=== PATIENT | male | born 1960 | race African-American/Black ===

== ENCOUNTER 2016-12-14 11:27 | Emergency (ER) | payer MEDICARE, OTHER ==
[2016-12-14] MEDS: ASPIRIN 81 MG CHEW TAB PO ONE (11:45)
--- NOTE | 2016-12-14 11:46 | ED Physician Documentation ---
Chest Pain - HISTORIAN Historian: patient, spouse - HPI Chief Complaint: Chest Pain Additional Information: chest pain lt lower parasternal sens only to touch or pressure or cough or deep breath Onset: days ago (2-3) Timing: gradual onset, still present, worse Last known Well Date: 12/09/16 Last Known Well Time: 22:00 Severity: moderate Quality: pressure, sharp. denies: like prior LA Chest Pain Radiation: no radiation Chest Pain Signs/Symptoms: denies: nausea, vomiting, diaphoresis, cool extremities, dizziness, dyspnea Worsened By: change in position Relieved By: rest - ROS CONST: no problems MS/LYMPH: none GI/: other (occ gerd - gas) EYES/ENT: denies: problems with vision SKIN/ENDO: none NEURO/PSYCH: none - PAST HX LA risk factors: other (multiple myeloma under remision s/p chemo tx) DVT/PE Risk Factors: cancer (multiple myeloma s/p chemo in remission) Neuro deficit: none GI disease: GERD Surgeries/Procedures: other (bone marrow transplant) Allergies/Adverse Reactions: Allergies Allergy/AdvReac Type Severity Reaction Status Date / Time No Known Drug Allergies Allergy Verified 12/14/16 11:55 Home Medications: Ambulatory Orders Medication Instructions Recorded Aspirin [Charito] 81 mg PO DAILY 12/14/16 Citalopram Hydrobromide [Celexa] 20 mg PO QD 12/14/16 Lenalidomide [Revlimid] 12/14/16 - SOCIAL HX Smoking History: greater than 1 pack/day Alcohol Use: heavy Drug Use: marijuana - FAMILY HX Family HX: none - VITAL SIGNS Vital Signs: Vital Signs Temp Pulse Resp BP Pulse Ox 99/62 11/25/15 13:18 - REVIEWED ASSESSMENTS Nursing Assessment Reviewed: Yes Vitals Reviewed: Yes ED Results Lab/Radiology - Radiology Radiology Impressions: cxr scaring vs atelectasis rt lung - Orders Orders: ED Orders Category Date Time Status Continuous EKG monitoring Q30M Care 12/14/16 11:43 Ordered Continuous Pulse Oximetry Q30M Care 12/14/16 11:[address] Saline Lock/IV NOW Care 12/14/16 11:43 Ordered CHEST 1 VIEW [RAD] Stat Exams 12/14/16 11:43 Ordered CBC/PLATELET/DIFF Routine Lab 12/14/16 11:43 Ordered CMP Routine Lab 12/14/16 11:43 Ordered CREATINE KINASE Routine Lab 12/14/16 11:43 Ordered TROPONIN I (cTnI) Stat Lab 12/14/16 11:43 Ordered Aspirin Med 12/14/16 11:43 Once 324 mg PO NOW ONE EKG WITH COMPARISON Stat Ther 12/14/16 11:43 Ordered Chest Pain Physical Exam - EXAM General Appearance: mild distress EENT: eye inspection normal Neck: nml inspection, no carotid bruit Respiratory: no resp. distress, nml breath sounds, manifests distinct pain on movement. No: chest non-tender, resp.distress CVS: reg. rate & rhythm, no murmur Abdomen: soft, non-tender Skin: warm/dry, normal color. No: cyanosis, diaphoresis, jaundice Extremities: non-tender, normal range of motion, no evidence of injury Neuro: oriented X3, motor nml, sensation nml, mood/affect nml Discharge Clincal Impression: Atypical chest pain, Substance abuse Home Medications: Ambulatory Orders Aspirin [Charito] 81 mg PO DAILY 12/14/16 Citalopram Hydrobromide [Celexa] 20 mg PO QD 12/14/16 Lenalidomide [Revlimid] 12/14/16 Comments: ab ecg = ok. disc life style modification and ibu 600 tid plus hot pad to chest. taper dose as gets better Condition: Good Disposition: 01 HOME, SELF-CARE Decision to Admit: NO Decision Time: 13:22
[2016-12-14 12:06] LABS: BASOPHILS % 1.1 (0.0-1.5); EOSINOPHILS % 5.8 % (0.0-6.8); MEAN CORPUSCULAR HEMOGLOBIN 36.4 pg (28.0-34.0); MONOCYTES # 0.6 # k/uL (0.0-0.9); MONOCYTES % 8.3 % (0.0-11.0); NEUTROPHILS # 3.6 # k/uL (1.4-7.7)
[2016-12-14 12:25] LABS: eGFR (African) > 60; eGFR (Non-African) > 60
[2016-12-14 13:39] VITALS: BP 108/74
--- NOTE | 2016-12-14 13:55 | Diagnostic Imaging Report ---
[facility] [address] [facility].[address] [address] Report Submission Date: Dec 14, 2016 1:02:40 PM ENVIRONMENTAL OFFICER Patient Study Name: FAISAL RÍOS Date: Dec 14, 2016 12:24:37 PM ENVIRONMENTAL OFFICER Modality Type: CR Gender: M Description: CHEST : 58 Institution: [facility] Physician: DEMARIO Beaver DO Portable chest HISTORY: 4 days of chest pain FINDINGS: Minimal right upper lobe atelectasis or scar and mild hyperinflation are observed. There is no confluent infiltrate, pleural effusion, or pneumothorax. Heart size and pulmonary vascularity are normal. IMPRESSION: Minimal right upper lobe atelectasis or scar and mild hyperinflation. Electronically signed on Dec 14, 2016 1:02:40 PM ENVIRONMENTAL OFFICER by: Toby BRYAN
== END 2016-12-14 13:36 | disposition home or self-care (01) ==
LOC: ED 11:27
DX: R07.89 Other chest pain (principal); F19.10 Other psychoactive substance abuse, uncomplicated
CPT/HCPCS: 71010; 80053; 82550; 84484; 85025; 99282; 99283; S1016

== ENCOUNTER 2017-09-10 00:25 | Emergency (ER) | payer MEDICARE, OTHER ==
[2017-09-10] MEDS: 0.9 % SODIUM CHLORIDE 1,000 ML IV ONE ×3 (00:37→02:04)
[2017-09-10] MEDS ORDERED: 0.9 % SODIUM CHLORIDE 1,000 ML IV ONE (00:39)
[2017-09-10 01:22] LABS: MEAN CORPUSCULAR HEMOGLOBIN 36.4 pg (28.0-34.0); MEAN CORPUSCULAR VOLUME 104.7 fl (80.0-100.0)
--- NOTE | 2017-09-10 01:38 | ED Physician Documentation ---
General Adult - HISTORIAN Historian: patient - HPI Stated Complaint: Left Rib Pain/Back Pain Chief Complaint: General Adult Onset: days ago Timing: worse Further Comments: yes (57 year old male patient brought in by family with complaints of severe weakness, nausea. Last chemo was Wednesday at [place]. History of multiple myeloma. C/O dyspnea with exerction, denies fever.) - ROS CONST: recent illness, weakness, weight loss, chills. denies: fever EYES/ENT: none CVS/RESP: shortness of breath. denies: chest pain, cough GI/: nausea. denies: abdominal pain, problems urinating, vomiting, diarrhea MS/SKIN/LYMPH: none NEURO/PSYCH: denies: headache, difficulty walking, difficulty with speech, anxiety, depression - PAST HX Past History: other (GERD, multiple myeloma) Allergies/Adverse Reactions: Allergies Allergy/AdvReac Type Severity Reaction Status Date / Time No Known Drug Allergies Allergy Verified 12/14/16 11:55 Home Medications: Ambulatory Orders Medication Instructions Recorded Aspirin [Charito] 81 mg PO DAILY 12/14/16 Acyclovir [Zovirax] 400 mg PO Q8H 09/10/17 Dexamethasone [Decadron] 20 mg PO DAILY 09/10/17 LORazepam [Ativan] 0.5 mg PO Q4H PRN 09/10/17 Lenalidomide [Revlimid] 10 mg PO DAILY 09/10/17 Prochlorperazine Maleate 10 mg PO Q4-6 PRN 09/10/17 [Compazine] - SOCIAL HX Smoking History: cigarettes Alcohol Use: occasionally - FAMILY HX Family History: No - VITAL SIGNS Vital Signs: Vital Signs Temp Pulse Resp BP Pulse Ox 97.6 F 104 H 24 82/57 92 09/10/17 00:25 09/10/17 01:30 09/10/17 00:25 09/10/17 00:25 09/10/17 01:30 - REVIEWED ASSESSMENTS Nursing Assessment Reviewed: Yes Vitals Reviewed: Yes Progress - Progress Progress: 013 Call to Beard, case reviewed, SBP 75-80 0140 patient awake and alert with hypotension. Port accessed, 2nd blood culture obtained and 2nd liter of fluid started. 0150 BP improved 85/56, MAP 67 - will continue to hydrated and try to avoid vasopressor. 0205 BP 75/50, MAP 50 - Will start dopamine at 5mcg/kg/min to stabilize for transfer. Continue with hydration. Chirag updated. Beard request levophed drip. BP improved at discharge, patient remains awake and alert. - EKG/XRAY/CT EKG: rhythm (ST, no acute changes) ED Results Lab/Radiology - Lab Results Lab Results: Lab Results 09/10/17 09/10/17 09/10/17 00:48 00:46 00:46 WBC RBC Hgb Hct MCV MCH MCHC RDW Plt Count Neut % (Auto) Lymph % (Auto) Fallon % (Auto) Eos % (Auto) Baso % (Auto) Neut # (Auto) Lymph # (Auto) Fallon # (Auto) Eos # (Auto) Baso # (Auto) Reactive Lymphs % Reactive Lymphs # Sodium 128 mmol/L L mmol/L (137-145) Potassium 4.2 mmol/L mmol/L (3.5-5.1) Chloride 92 mmol/L L mmol/L (98-107) Carbon Dioxide 24 mmol/L mmol/L (22-30) BUN 59 mg/dL H mg/dL (9-20) Creatinine 2.00 mg/dL H mg/dL (0.66-1.25) Estimated Creat Clear 36 Est GFR ( Amer) 44 L (60 - ) Est GFR (Non-Af Amer) 37 L (60 - ) Glucose 104 mg/dL mg/dL (74-106) Lactate 3.3 U/L H U/L (0.7-2.1) Calcium 8.8 mg/dL mg/dL (8.4-10.2) Total Bilirubin 1.0 mg/dL mg/dL (0.2-1.3) AST 16 U/L U/L (15-46) ALT 21 U/L U/L (13-69) Alkaline Phosphatase 38 U/L U/L (38-126) Creatine Kinase 20 U/L L U/L (55-170) Troponin I 0.04 ng/mL ng/mL (0.03-0.06) Total Protein 7.9 g/dL g/dL (6.3-8.2) Albumin 3.5 g/dL g/dL (3.5-5.0) 09/10/17 00:46 WBC 0.50 K/ul L* K/ul (4.00-12.00) RBC 2.39 M/ul L M/ul (3.90-5.20) Hgb 8.7 g/dL L g/dL (12.0-18.0) Hct 25.0 % L % (37.0-53.0) MCV 104.7 fl H fl (80.0-100.0) MCH 36.4 pg H pg (28.0-34.0) MCHC 34.8 g/dL g/dL (30.0-36.0) RDW 15.7 % H % (11.3-14.3) Plt Count 45 K/mm3 L K/mm3 (130-400) Neut % (Auto) 33.4 % L % (39.0-79.0) Lymph % (Auto) 54.9 % H % (16.0-50.0) Fallon % (Auto) 3.1 % % (0.0-11.0) Eos % (Auto) 0.2 % % (0.0-6.8) Baso % (Auto) 1.6 H (0.0-1.5) Neut # (Auto) 0.2 # k/uL L # k/uL (1.4-7.7) Lymph # (Auto) 0.3 # k/uL L # k/uL (0.6-4.0) Fallon # (Auto) 0.0 # k/uL # k/uL (0.0-0.9) Eos # (Auto) 0.0 # k/uL # k/uL (0.0-0.6) Baso # (Auto) 0.0 # k/uL # k/uL (0.0-0.5) Reactive Lymphs % Pending Reactive Lymphs # Pending Sodium Potassium Chloride Carbon Dioxide BUN Creatinine Estimated Creat Clear Est GFR ( Amer) Est GFR (Non-Af Amer) Glucose Lactate Calcium Total Bilirubin AST ALT Alkaline Phosphatase Creatine Kinase Troponin I Total Protein Albumin - Radiology Radiology Impressions: Findings: The lungs are mildly hyperinflated. There is diffuse infiltrate present within the right middle lobe and lingular segment of the left upper lobe. There is no large pleural effusion or pneumothorax identified. A port is present in the right chest wall with catheter tip terminating in the distal superior vena cava. Impression: Impression: 1. Diffuse right middle lobe and left upper lobe lingular segment infiltrate present. - Orders Orders: ED Orders Category Date Time Status Continuous EKG monitoring Q30M Care 09/10/17 00:37 Active Continuous Pulse Oximetry Q30M Care 09/10/17 00:37 Active CHEST P.A.&LAT 2 VIEWS [RAD] Stat Exams 09/10/17 00:37 Ordered BLOOD CULTURE Stat Lab 09/10/17 00:53 Ordered CBC/PLATELET/DIFF Routine Lab 09/10/17 00:46 Results CMP Routine Lab 09/10/17 00:46 Completed CREATINE KINASE Routine Lab 09/10/17 00:46 Completed LACTATE Stat Lab 09/10/17 00:48 Completed TROPONIN I (cTnI) Stat Lab 09/10/17 00:46 Completed 0.9 % Sodium Chloride [Normal Saline] 1,000 ml Med 09/10/17 00:39 Discontinued IV .STK-MED 0.9 % Sodium Chloride [Normal Saline] 1,000 ml Med 09/10/17 01:36 Ordered IV NOW 0.9 % Sodium Chloride [Normal Saline] 1,000 ml Med 09/10/17 00:37 Active IV Q1H Oxygen Daily Oxygen 09/10/17 00:45 Ordered EKG WITH COMPARISON Stat Ther 09/10/17 00:37 Ordered General Adult Physical Exam - PHYSICAL EXAM GENERAL APPEARANCE: moderate distress EENT: eye inspection normal, pharynx normal, AARON, dry mucous membranes RESPIRATORY: no resp distress, chest non-tender, other (deminished in bases) CVS: heart sounds normal, equal pulses, no murmur, no gallop, PMI nml, no JVD, no friction rub, tachycardia (sinus ) ABDOMEN: soft, no organomegaly, normal bowel sounds, no abdominal bruit, no distension BACK: normal inspection, no CVA tenderness SKIN: warm/dry, normal color EXTREMITIES: non-tender, normal range of motion, no evidence of injury, no edema NEURO: oriented X3, CN's nml as tested, motor nml, sensation nml, mood/affect nml, other (severe generalized edema) Discharge Clincal Impression: Dehydration, Pancytopenia, Hyponatremia Multiple myeloma Qualifiers: Multiple myeloma remission status: not in remission Qualified Code(s): C90.00 - Multiple myeloma not having achieved remission Hypotension Qualifiers: Hypotension type: other hypotension type Qualified Code(s): I95.89 - Other hypotension Referrals: Luis Merrill MD [Primary Care Provider] - 2 Days Condition: Fair Disposition: 02 XFER SHT-TRM HOSP Decision to Admit: NO Decision Time: 01:45
[2017-09-10] MEDS ORDERED: DOPAMINE HCL/D5W 400 MG/250 ML BAG IV ONE (02:04)
[2017-09-10] MEDS: DOPAMINE HCL/D5W 400 MG/250 ML BAG IV ONE (02:05)
[2017-09-10] MEDS ORDERED: NOREPINEPHRINE BITARTRATE 1 MG/ML 4ML IV ONE (02:12)
[2017-09-10] MEDS ORDERED: 0.9 % SODIUM CHLORIDE 250 ML IV ONE (02:19)
[2017-09-10 03:01] VITALS: BP 98/66
--- NOTE | 2017-09-10 06:36 | Diagnostic Imaging Report ---
GOSIA PATEL (LEAN FACILITATOR) - ER [facility] [address] [facility].[address] [address] Report Submission Date: Sep 10, 2017 1:21:19 AM CDT Patient Study Name: FAISAL RÍOS Date: Sep 10, 2017 1:03:30 AM CDT Modality Type: CR Gender: M Description: CHEST : 58 Institution: [facility] Physician: GOSIA PATEL (JAZMYN) - ER Chest, 2 view History: Shortness of breath. Findings: The lungs are mildly hyperinflated. There is diffuse infiltrate present within the right middle lobe and lingular segment of the left upper lobe. There is no large pleural effusion or pneumothorax identified. A port is present in the right chest wall with catheter tip terminating in the distal superior vena cava. Impression: Impression: 1. Diffuse right middle lobe and left upper lobe lingular segment infiltrate present. Electronically signed on Sep 10, 2017 1:21:19 AM CDT by: Dannie BRYAN
[2017-09-10 08:40] LABS: ANISOCYTOSIS 1+ (NEGATIVE); HYPOCHROMASIA 1+ (NEGATIVE); SEGMENTED NEUTROPHILS % 38 % (39-79)
== END 2017-09-10 02:45 | disposition short-term general hospital (02) ==
LOC: ED 00:25
DX: D61.818 Other pancytopenia (principal); E86.0 Dehydration; E87.1 Hypo-osmolality and hyponatremia; C90.00 Multiple myeloma not having achieved remission; I95.89 Other hypotension
CPT/HCPCS: 71020; 80053; 82550; 83605; 84484; 85025; 87040; 87070; 93005; J1265; J7030; J7050; 87186; 96361; 96374; 96376; 99284; S1016